=== PATIENT | female | born 1950 | race Caucasian/White ===

== ENCOUNTER 2019-07-28 09:56 | Inpatient (IN) | payer MEDICARE, OTHER ==
[~2019-07-28] VITALS: Ht 170.2 cm; Wt 82.0 kg
[2019-07-28] MEDS ORDERED: metroNIDAZOLE-Flagyl 500mg/NS 100 ML IV STA (10:58)
[2019-07-28] MEDS ORDERED: ciprofloxacin lact 400MG/200ML 200 ML IV ONE (11:00)
[2019-07-28] MEDS ORDERED: normal saline 1000ml 1,000 ML IV ONE (11:00)
[2019-07-28 11:07] LABS: CLARITY,URINE CLEAR (Clear); COLOR,URINE YELLOW (Yellow); GLUCOSE, URINE NEGATIVE (Neg); KETONES,URINE 15 mg/dl (Neg); LEUKOCYTE ESTERASE ,URINE NEGATIVE (Neg); NITRITES, URINE NEGATIVE (Neg); OCCULT BLOOD,URINE TRACE-INTACT (Neg); PH,URINE 6.5 (4.8-8.0); PROTEIN,URINE NEGATIVE (Neg); UROBILINOGEN,URINE 0.2 E.U/dL (0.2-1.0)
[2019-07-28 11:09] LABS: UA COLLECTION TYPE CLN CATCH MIDSTREAM
[2019-07-28 11:21] LABS: SQUAMOUS EPITHELIAL CELL,UR FEW /LPF (FEW)
[2019-07-28 11:22] LABS: BACTERIA,URINE FEW /HPF (Neg); RBC,URINE 0-2 /HPF (0-2); WBC,URINE 0-4 /HPF (0-4)
[2019-07-28 11:26] LABS: BASOPHILS % (AUTO) 0.3 % (0-1); EOSINOPHILS % (AUTO) 0.1 % (0-6); HEMATOCRIT 42.7 % (35.0-45.0); LYMPHOCYTES # (AUTO) 1.4 X10'3 (1.1-4.8); LYMPHOCYTES % (AUTO) 11.3 % (21-51); MEAN CORPUSCULAR HEMOGLOBIN 28.4 PG (27.0-31.0); MEAN CORPUSCULAR HGB CONC 32.8 g/dL (33.0-36.5); MEAN CORPUSCULAR VOLUME 86.6 FL (78-98); MEAN PLATELET VOLUME 8.8 FL (7.4-10.4); MONOCYTES # (AUTO) 0.9 X10'3 (0-0.9); MONOCYTES % (AUTO) 7.5 % (2-12); NEUTROPHILS # (AUTO) 9.9 X10'3 (1.8-7.7); NEUTROPHILS % (AUTO) 80.8 % (42-75); PLATELET COUNT 315 X10'3 (140-440); RED BLOOD COUNT 4.93 X10'6 (4.20-5.60); RED CELL DISTRIBUTION WIDTH 13.9 % (11.5-14.5); WHITE BLOOD COUNT 12.2 X10'3 (4.5-11.0)
[2019-07-28 11:34] LABS: ALANINE AMINOTRANSFERASE 18 U/L (12-78); ALBUMIN 3.9 G/DL (3.4-5.0); ALKALINE PHOSPHATASE 86 IU/L (46-116); ANION GAP 10 (8-16); ASPARTATE AMINO TRANSFERASE 13 U/L (10-37); BILIRUBIN,TOTAL 1.1 MG/DL (0.1-1.0); BLOOD UREA NITROGEN 9 MG/DL (7-18); BUN/CREATININE RATIO 11.7 (6.6-38.0); CALCIUM 9.1 MG/DL (8.5-10.1); CHLORIDE 103 MMOL/L (99-107); CREATININE 0.77 MG/DL (0.40-0.90); GLUCOSE 101 MG/DL (70-104); LIPASE 61 U/L (73-393); POTASSIUM 3.8 MMOL/L (3.5-5.1); SODIUM 140 MMOL/L (135-145); TOTAL CARBON DIOXIDE 27.4 MMOL/L (24-32); TOTAL PROTEIN 7.8 G/DL (6.4-8.2); eGFR 74 ML/MIN
[2019-07-28] MEDS ORDERED: diltiazem-D5W 125mg/125ml 125 ML IV SCH (11:35)
[2019-07-28] MEDS ORDERED: diltiazem-NS 100mg/100ml 100 ML IV SCH (11:35)
--- NOTE | 2019-07-28 11:35 | NUR ---
SPOKE TO PHARMACY REGARDING ALLERGIES AND ANTIBIOTICS ORDERED. GENEVIEVE LEHMAN. WILL SPEAK TO DR. REYES ABOUT ALTERNATIVE ANTIBIOTIC.
[2019-07-28] MEDS ORDERED: CefTRIAXone/D5W-Rocephin 1gm 50 ML IV ONE (11:40)
[2019-07-28] MEDS ORDERED: ondansetron/PF 4mg/2ml inj IV ONE (11:40)
[2019-07-28] MEDS ORDERED: morphine 2 MG/ML inj. syringe IV PRN (12:55)
[2019-07-28] MEDS ORDERED: magnesium 2GM in 50ml NS 50 ML IV PRN (12:55)
[2019-07-28] MEDS ORDERED: ondansetron/PF 4mg/2ml inj IV PRN (12:55)
[2019-07-28] MEDS ORDERED: potassium CL 10mEq/100ml bag 100 ML IV PRN ×2 (12:55)
[2019-07-28] MEDS ORDERED: potassium Cl 20 mEq SR tablet PO PRN ×2 (12:55)
[2019-07-28] MEDS ORDERED: magnesium 4gm in 100ml NS 100 ML IV PRN (12:55)
[2019-07-28] MEDS ORDERED: magnesium Cl slow-release 64mg tablet PO PRN (12:55)
--- NOTE | 2019-07-28 13:13 | NUR ---
Received report from CRISTAL Tejada in ED. Patient to be brought up to room 4014 A.
[2019-07-28] MEDS ORDERED: LEVO100C2 PO (13:16)
[2019-07-28 13:33] VITALS: BP 141/68
[2019-07-28] MEDS ORDERED: LACT1CAP89 PO (15:55)
[2019-07-28 18:00] VITALS: BP 150/65
--- NOTE | 2019-07-28 18:15 | NUR ---
Patient in room [facility]TH[facility] 4014. I have received report from CRISTAL Abbasi and had the opportunity to ask questions and assume patient care.
--- NOTE | 2019-07-28 18:43 | NUR ---
Problems reprioritized. Patient report given, questions answered & plan of care reviewed with CRISTAL Chamberlain.
[2019-07-28] MEDS: normal saline 1000ml 1,000 ML IV SCH (19:29)
[2019-07-28] MEDS: K and/or MAG REPLACEMENT MC SCH (20:00)
[2019-07-28 22:00] VITALS: BP 135/67
[2019-07-29 04:55] LABS: ALBUMIN 3.2 G/DL (3.4-5.0); ANION GAP 5 (8-16); BASOPHILS % (AUTO) 0.2 % (0-1); BLOOD UREA NITROGEN 9 MG/DL (7-18); BUN/CREATININE RATIO 13.2 (6.6-38.0); CALCIUM 8.8 MG/DL (8.5-10.1); CHLORIDE 109 MMOL/L (99-107); CREATININE 0.68 MG/DL (0.40-0.90); EOSINOPHILS # (AUTO) 0.1 X10'3 (0-0.9); EOSINOPHILS % (AUTO) 0.6 % (0-6); GLUCOSE 83 MG/DL (70-104); HEMATOCRIT 39.2 % (35.0-45.0); LYMPHOCYTES # (AUTO) 1.8 X10'3 (1.1-4.8); MAGNESIUM 2.2 MG/DL (1.5-2.4); MEAN CORPUSCULAR HEMOGLOBIN 28.7 PG (27.0-31.0); MEAN CORPUSCULAR HGB CONC 33.2 g/dL (33.0-36.5); MEAN CORPUSCULAR VOLUME 86.5 FL (78-98); MEAN PLATELET VOLUME 9.1 FL (7.4-10.4); MONOCYTES # (AUTO) 0.8 X10'3 (0-0.9); MONOCYTES % (AUTO) 8.4 % (2-12); NEUTROPHILS # (AUTO) 6.6 X10'3 (1.8-7.7); NEUTROPHILS % (AUTO) 71.8 % (42-75); PLATELET COUNT 260 X10'3 (140-440); POTASSIUM 3.8 MMOL/L (3.5-5.1); RED BLOOD COUNT 4.54 X10'6 (4.20-5.60); SODIUM 143 MMOL/L (135-145); TOTAL CARBON DIOXIDE 29.2 MMOL/L (24-32); WHITE BLOOD COUNT 9.2 X10'3 (4.5-11.0); eGFR 86 ML/MIN
[2019-07-29 06:00] VITALS: BP 127/69
--- NOTE | 2019-07-29 06:40 | NUR ---
Problems reprioritized. Patient report given, questions answered & plan of care reviewed with CRISTAL Abbasi.
--- NOTE | 2019-07-29 06:47 | NUR ---
Patient in room [facility]TH[facility] 4014. I have received report from CRISTAL Chamberlain and had the opportunity to ask questions and assume patient care.
[2019-07-29] MEDS: K and/or MAG REPLACEMENT MC SCH ×2 (08:00→20:00)
[2019-07-29] MEDS: LEVOTHYROXINE SODIUM PO SCH (08:09)
[2019-07-29] MEDS: CefTRIAXone 2gm/D5W 50ml 50 ML IV SCH (08:09)
[2019-07-29 10:00] VITALS: BP 143/69
[2019-07-29] MEDS ORDERED: PEG 400/HYPROMELLOSE/GLYCERIN 15ml bottle EACHEYE PRN (12:40)
[2019-07-29] MEDS: normal saline 1000ml 1,000 ML IV SCH (14:32)
[2019-07-29 18:00] VITALS: BP 165/71
--- NOTE | 2019-07-29 18:09 | NUR ---
Problems reprioritized. Patient report given, questions answered & plan of care reviewed with CRISTAL Chamberlain.
[2019-07-29] MEDS: cefuroxime axetil 250mg tablet PO SCH (19:22)
[2019-07-29] MEDS ORDERED: lactobacillus rhamnosus 10,000 MMU CELLS/CAPSULE PO SCH (20:00)
[2019-07-29 22:00] VITALS: BP 147/72
--- NOTE | 2019-07-29 23:59 | NUR ---
Patient reports her eyes are dry. She refused the eye drops ordered stating, "I can only use Refresh eye drops." Patient also reports her stomach has been upset since taking her 2000 medications, pt refused zofran.
[2019-07-30 05:00] LABS: BASOPHILS % (AUTO) 0.4 % (0-1); EOSINOPHILS # (AUTO) 0.1 X10'3 (0-0.9); EOSINOPHILS % (AUTO) 1.8 % (0-6); HEMATOCRIT 39.9 % (35.0-45.0); HEMOGLOBIN 13.2 g/dl (12.0-16.0); LYMPHOCYTES # (AUTO) 1.9 X10'3 (1.1-4.8); LYMPHOCYTES % (AUTO) 25.2 % (21-51); MEAN CORPUSCULAR HEMOGLOBIN 28.5 PG (27.0-31.0); MEAN CORPUSCULAR VOLUME 86.4 FL (78-98); MONOCYTES # (AUTO) 0.6 X10'3 (0-0.9); MONOCYTES % (AUTO) 8.6 % (2-12); NEUTROPHILS # (AUTO) 4.8 X10'3 (1.8-7.7); PLATELET COUNT 272 X10'3 (140-440); RED BLOOD COUNT 4.61 X10'6 (4.20-5.60); RED CELL DISTRIBUTION WIDTH 13.2 % (11.5-14.5); WHITE BLOOD COUNT 7.5 X10'3 (4.5-11.0)
[2019-07-30 05:09] LABS: ANION GAP 8 (8-16); BLOOD UREA NITROGEN 9 MG/DL (7-18); BUN/CREATININE RATIO 15.3 (6.6-38.0); CALCIUM 8.7 MG/DL (8.5-10.1); CHLORIDE 108 MMOL/L (99-107); CREATININE 0.59 MG/DL (0.40-0.90); GLUCOSE 83 MG/DL (70-104); MAGNESIUM 2.1 MG/DL (1.5-2.4); POTASSIUM 3.7 MMOL/L (3.5-5.1); SODIUM 142 MMOL/L (135-145); TOTAL CARBON DIOXIDE 25.7 MMOL/L (24-32); eGFR > 90 ML/MIN
--- NOTE | 2019-07-30 06:21 | NUR ---
Problems reprioritized. Patient report given, questions answered & plan of care reviewed with CRISTAL Kathleen.
[2019-07-30] MEDS: LEVOTHYROXINE SODIUM PO SCH (07:11)
[2019-07-30] MEDS: CefTRIAXone 2gm/D5W 50ml 50 ML IV SCH (09:37)
[2019-07-30] MEDS: cefuroxime axetil 250mg tablet PO SCH (10:35)
--- NOTE | 2019-07-30 11:13 | NUR ---
RN TC: Pt specific preferences on full liquids diet requesting oatmeal as well this AM. RD d/w RN only able to send cream of wheat which pt does not like. Pt seen by RD and reports lactose intolerance, no milk protein allergy but does not eat dairy products since causes diarrhea, does not want orange juice only apple juice TIDWM, and chocolate as well as barley. Pt requests clear broths and RD educated pt that given specific preferences on full liquid diet will mostly be receiving clear liquid meals w exception to almond milk TID per pt request; pt is agreeable. Dietary notified of pt food preferences and lactose intolerance added to EMR. Pt DX diverticulosis and presumed microperforation per MD note. Pt reports hx diverticulitis and verbally reported proper diet guidelines for diverticulitis during RD visit. Pt declines any further questions/concerns at this time. Addendum: 07/30/19 at [address] Amended: Links added.
[2019-07-30] MEDS: normal saline 1000ml 1,000 ML IV SCH (11:15)
[2019-07-30] MEDS ORDERED: METR500T PO (15:28)
[2019-07-30] MEDS ORDERED: CEFU250T95 PO (15:28)
--- NOTE | 2019-07-30 16:30 | NUR ---
Received discharge orders from Dr. Salinas for pt to discharge today. IV infiltrated in right arm. No redness/swelling at insertion site. Applied pressure and bandaid. Pt tolerated well. CRISTAL Porter reviewed discharge orders written by Dr. Salinas, and transported pt to the [facility] via w/c for transport to home in personal vehicle.
--- NOTE | 2019-08-01 12:42 | NUR ---
Case management DC follow up: LMVM post DC status, questions, concerns
== END 2019-07-30 16:30 | disposition home or self-care (01) | DRG 392 ==
LOC: ER 09:57 → ED HOLD 12:46 → ORTHO 4S 13:25
PROVIDERS: ADMIT Internal Medicine; ATTEND Internal Medicine
DX: K57.00 Diverticulitis of small intestine with perforation and abscess without bleeding (principal); E06.3 Autoimmune thyroiditis; Z88.0 Allergy status to penicillin; Z88.8 Allergy status to other drugs, medicaments and biological substances; Z88.4 Allergy status to anesthetic agent; M19.90 Unspecified osteoarthritis, unspecified site; K76.0 Fatty (change of) liver, not elsewhere classified; N32.89 Other specified disorders of bladder
CPT/HCPCS: 36415; 74176; 80048; 80053; 81001; 83690; 83735; 85025; 87081; 96365; 96375; 99285; G0378; J0696; J2405; J3490; J7030

== ENCOUNTER 2023-12-06 09:36 | Outpatient (CLI) | payer MEDICARE, OTHER ==
[~2023-12-06 09:36] MED LIST: CEFU250T95 PO; LACT1CAP89 PO; LEVO100C2 PO
[2023-12-07] MEDS ORDERED: ONDA-245 PO (02:23)
== END 2023-12-06 23:59 | disposition home or self-care (01) ==
LOC: RAD 09:36
PROVIDERS: ATTEND Internal Medicine
DX: K86.89 Other specified diseases of pancreas (principal); I70.0 Atherosclerosis of aorta; R10.31 Right lower quadrant pain
CPT/HCPCS: 74150

== ENCOUNTER 2023-12-06 23:02 | Emergency (ER) | payer MEDICARE, OTHER ==
[~2023-12-06] VITALS: Ht 170.2 cm; Wt 59.1 kg
[2023-12-06 23:28] LABS: BASOPHILS % (AUTO) 0.5 % (0-1); EOSINOPHILS # (AUTO) 0.1 X10'3 (0-0.9); EOSINOPHILS % (AUTO) 1.1 % (0-6); HEMATOCRIT 41.4 % (35.0-45.0); HEMOGLOBIN 13.7 g/dl (12.0-16.0); LYMPHOCYTES # (AUTO) 2.9 X10'3 (1.1-4.8); LYMPHOCYTES % (AUTO) 37.4 % (21-51); MEAN CORPUSCULAR HEMOGLOBIN 28.3 PG (27.0-31.0); MEAN CORPUSCULAR HGB CONC 33.1 g/dL (33.0-36.5); MEAN CORPUSCULAR VOLUME 85.5 FL (78-98); MEAN PLATELET VOLUME 8.3 FL (7.4-10.4); MONOCYTES # (AUTO) 0.7 X10'3 (0-0.9); MONOCYTES % (AUTO) 9.4 % (2-12); NEUTROPHILS % (AUTO) 51.6 % (42-75); PLATELET COUNT 275 X10'3 (140-440); RED BLOOD COUNT 4.84 X10'6 (4.20-5.60); RED CELL DISTRIBUTION WIDTH 13.6 % (11.5-14.5); WHITE BLOOD COUNT 7.7 X10'3 (4.5-11.0)
[2023-12-06 23:40] LABS: ALANINE AMINOTRANSFERASE 21 U/L (12-78); ALBUMIN 3.9 G/DL (3.4-5.0); ALBUMIN/GLOBULIN RATIO 1.2 (1.1-1.5); ALKALINE PHOSPHATASE 66 IU/L (46-116); ANION GAP 8 (8-16); ASPARTATE AMINO TRANSFERASE 17 U/L (10-37); BILIRUBIN,TOTAL 0.9 MG/DL (0.1-1.0); BLOOD UREA NITROGEN 9 MG/DL (7-18); BUN/CREATININE RATIO 11.8 (10.0-20.0); CALCIUM 9.1 MG/DL (8.5-10.1); CHLORIDE 101 MMOL/L (99-107); CREATININE 0.76 MG/DL (0.40-0.90); GLUCOSE 96 MG/DL (70-104); LIPASE 25 U/L (16-77); POTASSIUM 3.8 MMOL/L (3.5-5.1); SODIUM 136 MMOL/L (135-145); TOTAL CARBON DIOXIDE 27.3 MMOL/L (24-32); TOTAL PROTEIN 7.1 G/DL (6.4-8.2); eCRCL 61 ML/MIN; eGFR 74 ML/MIN
[2023-12-07 01:39] LABS: BILIRUBIN,URINE NEGATIVE (Neg); CLARITY,URINE CLEAR (Clear); COLOR,URINE STRAW (Yellow); GLUCOSE, URINE NEGATIVE (Neg); KETONES,URINE 15 mg/dl (Neg); LEUKOCYTE ESTERASE ,URINE NEGATIVE (Neg); NITRITES, URINE NEGATIVE (Neg); OCCULT BLOOD,URINE NEGATIVE (Neg); PROTEIN,URINE NEGATIVE (Neg); UROBILINOGEN,URINE 0.2 E.U/dL (0.2-1.0)
[2023-12-07 01:40] LABS: URINE HCG NEGATIVE (NEG)
[2023-12-07 01:44] LABS: UA COLLECTION TYPE CLN CATCH MIDSTREAM
[2023-12-07] MEDS ORDERED: ONDA-245 PO (02:23)
[2023-12-07] MEDS: ondansetron 4mg rapidly disintigrating tab PO ONE (02:27)
[2023-12-07 02:32] VITALS: BP 145/82; PULSE 100; RESP 15; TEMP 97.5; O2SAT 99
== END 2023-12-07 02:41 | disposition home or self-care (01) ==
LOC: ER 23:03
DX: R10.84 Generalized abdominal pain (principal); Z88.0 Allergy status to penicillin; Z88.8 Allergy status to other drugs, medicaments and biological substances; Z88.1 Allergy status to other antibiotic agents; Z79.2 Long term (current) use of antibiotics; Z79.899 Other long term (current) drug therapy
CPT/HCPCS: 36415; 80053; 81003; 81025; 83690; 85025; 99284

== ENCOUNTER 2025-01-27 16:59 | Emergency (ER) | payer MEDICARE, OTHER ==
[~2025-01-27] VITALS: Ht 170.2 cm; Wt 52.7 kg
[~2025-01-27 16:59] MED LIST changes: +ONDA-245 PO
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
--- NOTE | 2025-01-27 19:22 | RADIOLOGY REPORT ---
CLINICAL HISTORY: head trauma TECHNIQUE: Helical imaging carried out from skull base to vertex without intravenous contrast. This exam was performed according to our departmental dose optimization program. Up-to-date CT equipment and radiation dose reduction techniques are utilized as appropriate. CTDIVol: 71.73 mGy DLP: 1189.21 mGy-cm WID: COMPARISON: None FINDINGS: Asymmetric incidental right basal ganglia calcification. Mild cerebral volume loss with concordant prominence of the subarachnoid spaces and ventricles. Minor periventricular white matter hypodensities consistent with nonspecific white matter disease. There is no midline shift or mass effect. The meade white matter interfaces are maintained. The basal cisterns are patent. There is no evidence of acute intracranial hemorrhage or extra-axial fluid collection. The mastoid air cells and visualized paranasal sinuses are well-aerated. IMPRESSION: 1. No acute intracranial abnormality. 2. Mild cerebral volume loss and minor chronic microvascular ischemic change.
[2025-01-27 20:46] VITALS: BP 155/74; PULSE 65; RESP 18; TEMP 98.6; O2SAT 99
== END 2025-01-27 20:47 | disposition home or self-care (01) ==
LOC: ER 17:00
DX: S00.03XA Contusion of scalp, initial encounter (principal); Z88.0 Allergy status to penicillin; Z88.1 Allergy status to other antibiotic agents; Z88.5 Allergy status to narcotic agent; Z88.8 Allergy status to other drugs, medicaments and biological substances; X58.XXXA Exposure to other specified factors, initial encounter; Y93.89 Activity, other specified; Y92.89 Other specified places as the place of occurrence of the external cause; Y99.8 Other external cause status
CPT/HCPCS: 70450; 99284